=== PATIENT | male | born 1970 | race Two or more races ===

== ENCOUNTER → 2017-01-20 | Outpatient (CLI) | payer OTHER ==
--- NOTE | 2017-01-21 02:35 | REP ---
Clinical: Pain with prior laminectomy. Technique: AP, lateral, bilateral oblique views of the lumbosacral spine. Findings: Pedicular screws are identified at the L3 through S1 levels without intervening Coyne rods and there is evidence for prior associated laminectomy. The screws at the L3 level are fractured bilaterally. Alignment and lordosis is maintained. No acute fracture / compression injury or subluxation noted. Moderate/advanced multilevel degenerative changes include marginal spurring, endplate sclerosis and disc space narrowing predominantly involving the L4-5, and L5-S1 levels. Impression: Postoperative and degenerative changes as described above. Alignment and lordosis appears maintained. Fractured pedicular screws at the L3 level. Signed by Abrahan Oneal MD 01/21/2017 02:27 A
== END ==
LOC: M RAD 09:28
PROVIDERS: ATTEND Surgery
DX: M54.5 Low back pain (principal)